=== PATIENT | male | born 1945 | race Caucasian/White ===

== ENCOUNTER 2023-03-01 15:02 | Emergency (ER) | payer MEDICARE, SELFPAY ==
[2023-03-01 15:05] VITALS: BP 127/77
[2023-03-01 15:25] LABS: % Basophils 1.1 % (0-2); % Eosinophils 5.4 % (0-6); % Lymphocytes 21.7 % (20.5-51.1); % Neutrophils 59.8 % (42.2-75.2); Absolute Basophils 0.1 10^3/uL (0-0.2); Absolute Eosinophils 0.3 10^3/uL (0-0.7); Absolute Immature Granulocytes 0.1 10^3/uL (0-0.05); Absolute Lymphocytes 1.4 10^3/uL (1.2-3.4); Absolute Monocytes 0.7 10^3/uL (0.1-0.6); Absolute Neutrophils 3.7 10^3/uL (1.4-6.5); Hematocrit 35.8 % (39.0-52.0); Hemoglobin 11.1 g/dL (13.0-18.0); Mean Corpuscular Hgb 25.7 pg (27.0-31.0); Mean Corpuscular Volume 82.9 fL (80.0-94.0); Mean Platelet Volume 9.5 fL (7.4-10.4); Nucleated Red Blood Cells % 0 % (-); Platelet Count 283 10^3/uL (130-400); Red Blood Cell Count 4.32 10^6/uL (4.70-6.10); Red Cell Dist. Width 21.7 % (11.5-14.5); White Blood Cell Count 6.3 10^3/uL (4.8-10.8)
[2023-03-01 15:35] LABS: INR 1.12; PT 14.6 Sec (11.4-14.6)
[2023-03-01 15:44] LABS: ALT (SGPT) 42 U/L (0-50); AST (SGOT) 38 U/L (17-59); Albumin 4.2 g/dl (3.5-5.0); Alkaline Phosphatase 64 U/L (38-126); Blood Urea Nitrogen 18 mg/dl (9-20); Calcium 9.7 mg/dl (8.4-10.2); Carbon Dioxide 25 mmol/L (22-30); Chloride 106 mmol/L (98-107); Glucose 108 mg/dl (70-99); Potassium 4.6 mmol/L (3.5-5.1); Sodium 135 mmol/L (135-145); Total Bilirubin 0.5 mg/dl (0.2-1.3); Total Protein 7.7 g/dl (6.3-8.2); eGFR > 60.00
[2023-03-01 17:04] VITALS: BP 133/71
--- NOTE | 2023-03-01 17:30 | ED.GENMED ---
History of Present Illness
General
Chief Complaint: Abnormal Lab Value
Source: patient, records, spouse and previous hospital records
Exam Limitations: none
Time Seen by Provider: 03/01/23 17:10
Nursing documentation reviewed up to this point in time: agreed with
Travel History
Have you had any contact with someone who has COVID-19?: No
Do you have any symptoms of coronavirus? Fever > 100 degrees, chills, cough, shortness of breath, sore throat, loss of taste or smell, muscle aches, or headache?: No
History of Present Illness
History of Present Illness:
77 male presents with fatigue dyspnea on exertion no chest pain, no leg edema no weight gain no weight loss this is a recurrent issue with him, saw his PCP at the [facility] few weeks ago had some blood work revealed hemoglobin of 5 suggested to come to the
ER he preferred to take iron instead as he has been through this before had upper or lower endoscopy also scheduled to have a stress test a few days, feeling okay until couple days ago, had increasing fatigue increased shortness of breath dyspnea
exertion
Drinks about a case of beer a week, does not smoke type II diabetic denies history of CAD or heart failure patient denies any dark or bloody stools, no hematuria
Past History
Past History
ED Past Medical History: CVA (TIA), NIDDM and Other (diverticulitis)
ED Past Surgical History: Other (Noncontributory )
Social History
Tobacco: Non-smoker
Alcohol: Daily
Drug: None
Personal:
Living: with family
Employment: Employed
Family History
Family History: Other (CVA at early ages )
Review of Systems
Review of Systems
All Other Systems: Not applicable
Constitutional: Reports fatigue; Denies fever
EENT: Reports no symptoms
Respiratory: Reports trouble breathing; Denies cough
Cardiac: Denies chest pain
ABD/GI: Reports no symptoms; Denies nausea, diarrhea, constipated, bloody stools, black stools or anorexia
: Reports no symptoms
Musculoskeletal: Reports no symptoms
Skin: Reports no symptoms
Neurological: Reports weakness
Phy Exam
Physical Exam
Physical Exam:
Physical Exam
General: no apparent distress, not acutely ill
Neck: No jaundice
Heart: s1/s2 regular rate and rhythm, no murmur. equal radial pulses.
Lungs: no acute respiratory distress. clear bilaterally
Abdomen: Soft nontender
Neuro: alert and oriented. no focal neurological deficits
Skin: no rash
Psychiatric: well kept. interactive and cooperative
Extremities: no edema. no calf tenderness.
Course
Orders/Labs/Results
Orders:
Orders
03/01/23 15:08
Electrocardiogram (*1) Urgent
Reason for Study: Fatigue / Weakness
EKG- Treatment ONCE
03/01/23 15:14
Type+Screen Urgent
CMP [Comprehensive Metabolic Panel] Urgent
Complete Blood Count/With Diff Urgent
PT/INR [Prothrombin Time] Urgent
03/01/23 17:19
CR Chest - 2 Views Urgent
Comment:
Reason For Exam: faigute
03/01/23 17:21
NT-proBNP Urgent
TSH Urgent
Troponin I Urgent
Abnormal Lab Results
03/01/23
15:14
RBC 4.32 L 10^6/uL
(4.70-6.10)
Hgb 11.1 L g/dL
(13.0-18.0)
Hct 35.8 L %
(39.0-52.0)
MCH 25.7 L pg
(27.0-31.0)
MCHC 31.0 L g/dL
(33.0-37.0)
RDW 21.7 H %
(11.5-14.5)
Abs Immat Gran (auto) 0.1 H 10^3/uL
(0-0.05)
Absolute Monos (auto) 0.7 H 10^3/uL
(0.1-0.6)
Immature Gran % 1.0 H %
(0-0.5)
Monocytes % 11.0 H %
(1.7-9.3)
Glucose 108 H mg/dl
(70-99)
03/01/23 15:14
03/01/23 15:14
Vital Signs
Initial and Last Documented VS:
Initial Vital Signs
Temp Pulse Resp BP Pulse Ox
97.7 F 79 17 127/77 99
03/01/23 15:05 03/01/23 15:05 03/01/23 15:05 03/01/23 15:05 03/01/23 15:05
Last Documented Vital Signs
Temp Pulse Resp BP Pulse Ox
97.7 F 77 18 133/71 99
03/01/23 15:05 03/01/23 17:04 03/01/23 17:04 03/01/23 17:04 03/01/23 17:04
MDM/Problems Addressed
Differential Diagnosis Includes:
Anemia heart failure electrolyte abnormality hypothyroid heart failure less likely ACS
MDM/Problems Addressed:
Fatigue shortness of breath anemia
Chronic conditions affecting care: DM and HTN
Acute Exacerbation and/or Progression of Chronic Illness: DM and HTN
*Radiology
Radiology exam reviewed: preliminary read by ED provider
*Pulse Oximetry
Patient hypoxic: no
*EKG
Interpreted by ED Provider?: Yes
Interpretation: abnormal
Comparison EKG: no comparison EKG present
Heart Rate: 78
Rate: normal
Rhythm: sinus
QRS Pattern: right bundle branch block
Ischemia: non-specific ST changes
*Manager Environmental Health And Safety Interpretation
Rate: normal
Interpretation: normal
Heart Rate: 78
Rhythm: sinus
*Critical Care Note
Total Time (30-74mins, 75-104mins- exclusive of procedures): Not Applicable
Data Reviewed
Review of Other/Old Records Reveals: Labs and Records
Source: patient and records
Update Note
Update Note:
5:37 PM labs are noted here prior levels noted denies any active bleeding supported by his blood work, most recent upper and lower endoscopy noted does have tics and polyps
Will add troponin proBNP and chest x-ray
6:11 PM show proBNP noted chest x-ray pending
ED Attending Note
-
Portions of this chart may have been created with voice recognition software.� Occasional wrong word or��sound alike� substitutions may have occurred due to the inherent limitations of voice recognition software.
Discharge Plan
Departure
Prescriptions:
No Action
No Current Medications
metformin 500 MG tablet
500 mg PO DAILY
pravastatin 40 MG tablet
40 mg PO DAILY
aspirin 81 MG tablet,delayed release (DR/EC)
81 mg PO DAILY
amoxicillin-pot clavulanate 875 MG/125 MG tablet
1 tab PO Q12 Qty: 14 0RF
metronidazole 500 MG tablet
500 mg PO TID Qty: 29 0RF
oxycodone-acetaminophen 5 MG/325 MG tablet
1 tab PO Q6HPRN PRN (Reason: pain) Qty: 12 0RF
levofloxacin 500 MG tablet
500 mg PO DAILY Qty: 9 0RF
Referrals:
Aletha Vallejo MD [Family Provider] -
Interventions
Interventions:
*Risk Screen - Suicide Last Done: 03/01/23 15:07
*General Assessment Last Done: 03/01/23 15:07
*Neglect/Abuse Screening Last Done: 03/01/23 15:07
ED- Fall Risk Assessment Last Done: 03/01/23 17:03
*ED COVID-19 Vaccine History Last Done: 03/01/23 15:07
[2023-03-01 17:56] LABS: NT-proBNP 433 pg/ml; Troponin I 0.028 ng/ml
[2023-03-01 18:15] LABS: TSH 4.12 uIU/ml (0.47-4.68)
[2023-03-01 18:58] VITALS: BP 126/72
== END 2023-03-01 19:01 | disposition home or self-care (01) ==
LOC: EMR 15:02
PROVIDERS: Emergency Medicine; EMERGENCY PHYSICIAN Emergency Medicine; FAMILY PHYSICIAN Internal Medicine
DX: R53.83 Other fatigue (principal); E11.9 Type 2 diabetes mellitus without complications; I10 Essential (primary) hypertension
CPT/HCPCS: 99285; 71046; 80053; 83880; 84443; 84484; 85025; 85610; 86850; 86900; 86901; 93005

== ENCOUNTER 2023-09-19 10:02 | Emergency (ER) | payer MEDICARE, SELFPAY ==
[2023-09-19 10:08] VITALS: BP 105/71
[2023-09-19 10:18] VITALS: BMI 32.6
[2023-09-19 10:32] VITALS: BP 111/70
[2023-09-19 10:38] LABS: % Basophils 0.6 % (0-2); % Eosinophils 3.5 % (0-6); % Immature Granulocytes 0.5 % (0-0.5); % Lymphocytes 15.6 % (20.5-51.1); % Monocytes 9.9 % (1.7-9.3); % Neutrophils 69.9 % (42.2-75.2); Absolute Basophils 0.1 10^3/uL (0-0.2); Absolute Eosinophils 0.3 10^3/uL (0-0.7); Absolute Lymphocytes 1.3 10^3/uL (1.2-3.4); Absolute Monocytes 0.8 10^3/uL (0.1-0.6); Absolute Neutrophils 5.9 10^3/uL (1.4-6.5); Hematocrit 40.3 % (39.0-52.0); Mean Corp Hgb Conc. 34.7 g/dL (33.0-37.0); Mean Corpuscular Hgb 32.9 pg (27.0-31.0); Mean Corpuscular Volume 94.6 fL (80.0-94.0); Mean Platelet Volume 9.7 fL (7.4-10.4); Nucleated Red Blood Cells % 0 % (-); Platelet Count 209 10^3/uL (130-400); Red Blood Cell Count 4.26 10^6/uL (4.70-6.10); Red Cell Dist. Width 12.8 % (11.5-14.5); White Blood Cell Count 8.5 10^3/uL (4.8-10.8)
[2023-09-19 10:49] LABS: Urine Albumin Trace (Neg - Trace); Urine Bilirubin Negative (Negative); Urine Character Clear (Clear); Urine Color Yellow; Urine Glucose 3+ (Negative); Urine Ketone Negative (Negative); Urine Leukocyte Negative (Negative); Urine Nitrite Negative (Negative); Urine Occult Blood Negative (Negative); Urine Specific Gravity 1.015 (<1.030); Urine Urobilinogen Negative (Neg - 1+)
[2023-09-19 10:54] LABS: ALT (SGPT) 31 U/L (0-50); AST (SGOT) 24 U/L (17-59); Albumin 4.2 g/dl (3.5-5.0); Alkaline Phosphatase 72 U/L (38-126); Blood Urea Nitrogen 29 mg/dl (9-20); Calcium 10.1 mg/dl (8.4-10.2); Carbon Dioxide 22 mmol/L (22-30); Chloride 105 mmol/L (98-107); Estimated Creatinine Clearance 56 ml/min; Glucose 203 mg/dl (70-99); Lipase 302 U/L (23-300); Potassium 4.7 mmol/L (3.5-5.1); Sodium 135 mmol/L (135-145); Total Bilirubin 0.7 mg/dl (0.2-1.3); Total Protein 7.2 g/dl (6.3-8.2); eGFR > 60.00
[2023-09-19 11:15] VITALS: BP 109/69
[2023-09-19] MEDS: AUGMENTIN 875 MG/125 MG 1 TABLET PO (11:19)
--- NOTE | 2023-09-19 11:28 | ED.GENMED ---
History of Present Illness
General
Chief Complaint: Abdominal Pain
Source: patient
Exam Limitations: none
Time Seen by Provider: 09/19/23 10:13
Nursing documentation reviewed up to this point in time: agreed with
History of Present Illness
History of Present Illness:
The patient is a pleasant 78-year-old man with a past medical history of mom-nguxuem-yivjscvqc diabetes who comes in complaining of gradual onset of mild left lower abdominal pain. Patient denies nausea, vomiting, diarrhea, constipation and fever.
He reports that he had diverticulitis years ago and this feels exactly like it. Patient reports that he is here to get antibiotics. He really does not want any other further workup such as a CAT scan. Patient denies injury. He denies urinary
symptoms.
Past History
Past History
ED Past Medical History: CVA (TIA), NIDDM and Other (diverticulitis)
ED Past Surgical History: Other (No past surgical history)
Social History
Tobacco: Non-smoker
Alcohol: Daily
Drug: None
Personal:
Living: with family
Employment: Employed
Family History
Family History: Other (CVA at early ages )
Review of Systems
Review of Systems
Allergies reviewed?: Yes
All Other Systems: ROS reviewed and negative except as documented in HPI and ROS
Constitutional: Reports no symptoms
EENT: Reports no symptoms
Respiratory: Reports no symptoms
Cardiac: Reports no symptoms
ABD/GI: Reports abdominal pain
: Reports no symptoms
Musculoskeletal: Reports no symptoms
Skin: Reports no symptoms
Neurological: Reports no symptoms
Endocrine: Reports no symptoms
Hematologic/Lymphatic: Reports no symptoms
Psychiatric: Reports no symptoms
Phy Exam
Physical Exam
Physical Exam:
Physical Exam
General: no apparent distress, not acutely ill, patient appears comfortable. Conversational and smiling
Neck: supple. no meningeal signs. normal psoterior pharynx
Heart: s1/s2 regular rate and rhythm,
Lungs: no acute respiratory distress. clear bilaterally
Abdomen: normal bowel sounds. Mild left lower quadrant tenderness without rebound or guarding. No flank tenderness. No pulsatile mass.
Neuro: alert and oriented. no focal neurological deficits
Skin: no rash
Psychiatric: well kept. interactive and cooperative
Extremities: no edema. no calf tenderness. negative homans. good distal pulses
Course
Orders/Labs/Results
Orders:
Orders
09/19/23 10:29
Complete Blood Count/With Diff Urgent
Comprehensive Metabolic Panel Urgent
Lipase Urgent
Urinalysis Reflex To Culture Urgent
Date Specimen was Collected: 09/19/23
Time Specimen was Collected: 10:22
09/19/23 11:11
Amoxicillin 875 mg/Clav 125 mg [Augmentin 875 mg/125 mg] 1 tablet PO NOW STA
Abnormal Lab Results
09/19/23
10:29
RBC 4.26 L 10^6/uL
(4.70-6.10)
MCV 94.6 H fL
(80.0-94.0)
MCH 32.9 H pg
(27.0-31.0)
Absolute Monos (auto) 0.8 H 10^3/uL
(0.1-0.6)
Lymphocytes % 15.6 L %
(20.5-51.1)
Monocytes % 9.9 H %
(1.7-9.3)
BUN 29 H mg/dl
(9-20)
Glucose 203 H mg/dl
(70-99)
Lipase 302 H U/L
(23-300)
Urine Glucose 3+ A
(Negative)
09/19/23 10:29
09/19/23 10:29
Vital Signs
Initial and Last Documented VS:
Initial Vital Signs
Temp Pulse Resp BP Pulse Ox
98.1 F 84 20 105/71 98
09/19/23 10:08 09/19/23 10:08 09/19/23 10:08 09/19/23 10:08 09/19/23 10:08
Last Documented Vital Signs
Temp Pulse Resp BP Pulse Ox
98.1 F 78 18 109/69 95
09/19/23 10:08 09/19/23 11:15 09/19/23 11:15 09/19/23 11:15 09/19/23 11:15
MDM/Problems Addressed
Differential Diagnosis Includes:
Acute diverticulitis, acute pyelonephritis, aortic dissection, aortic aneurysm, musculoskeletal pain
MDM/Problems Addressed:
Patient presents with acute left lower abdominal pain
Chronic conditions affecting care:
Given patient has a history of diverticulosis he could have acute diverticulitis
Acute Exacerbation and/or Progression of Chronic Illness:
Patient may have acute exacerbation of chronic diverticulosis
*Pulse Oximetry
Patient hypoxic: no
*EKG
Interpreted by ED Provider?: NA
*Seismic Observer Interpretation
Rate: Seismic Observer- N/A
*Critical Care Note
Total Time (30-74mins, 75-104mins- exclusive of procedures): Not Applicable
Data Reviewed
Review of Other/Old Records Reveals: Testing (Colonoscopy report reviewed from March 2019 which shows multiple areas of diverticulosis and various polyps)
Source: patient
Further Testing Considered But Not Given:
I told patient there is no way for us to definitely identify if he has acute diverticulitis or any complications without doing a CT. Patient reports that his symptoms are minimal, he feels well, and he really does not want a CAT scan. Patient
encouraged to return immediately with any increased pain, vomiting or fever. Patient seems extremely reliable and understands risks of not having a CAT scan. It is doubtful he is having an aortic issue given that he is strong pulses in his
bilateral lower extremities and has no weakness or numbness of his extremities.
ED Attending Note
-
Portions of this chart may have been created with voice recognition software.� Occasional wrong word or��sound alike� substitutions may have occurred due to the inherent limitations of voice recognition software.
Discharge Plan
Departure
Patient Disposition: Home (Routine Discharge)
Date of Disposition: 09/19/23
Time of Disposition: 11:08
Patient with high blood pressure during this ER visit?: No
Condition: Good
Covid-19: Not Applicable
Discharge Problem:
Abdominal pain, left lower quadrant, Acute dehydration, Hyperglycemia
Instructions: Diverticulitis (DC), High Blood Sugar, Adult ED, Abdominal Pain
Prescriptions:
New
amoxicillin-pot clavulanate 875-125 mg tablet
1 tab PO BID Qty: 19 0RF
No Action
No Current Medications
metformin 500 MG tablet
500 mg PO DAILY
pravastatin 40 MG tablet
40 mg PO DAILY
aspirin 81 MG tablet,delayed release (DR/EC)
81 mg PO DAILY
amoxicillin-pot clavulanate 875 MG/125 MG tablet
1 tab PO Q12 Qty: 14 0RF
metronidazole 500 MG tablet
500 mg PO TID Qty: 29 0RF
oxycodone-acetaminophen 5 MG/325 MG tablet
1 tab PO Q6HPRN PRN (Reason: pain) Qty: 12 0RF
levofloxacin 500 MG tablet
500 mg PO DAILY Qty: 9 0RF
Referrals:
Aletha Vallejo MD [Family Provider] -
Activity Restrictions/Additional Instructions:
It is extremely important that you return immediately with any worsening abdominal pain, vomiting, or fever. Please follow-up with your primary care doctor within 3 days. Your blood sugar was slightly elevated. Your blood work indicated mild
dehydration. Make sure you are drinking lots of fluids
Interventions
Interventions:
*Risk Screen - Suicide Last Done: 09/19/23 10:08
*General Assessment Last Done: 09/19/23 10:08
*Neglect/Abuse Screening Last Done: 09/19/23 10:08
*Nursing Disposition Last Done: 09/19/23 11:22
LR-Azblxu-Nzjnthmspa Assessment Last Done: 09/19/23 10:18
Discharge Date and Time
Discharge Date/Time: 09/19/23 11:23
Print Language: SOMALI
== END 2023-09-19 11:23 | disposition home or self-care (01) ==
LOC: EMR 10:02
PROVIDERS: EMERGENCY PHYSICIAN Emergency Medicine; FAMILY PHYSICIAN Internal Medicine
DX: R10.32 Left lower quadrant pain (principal); E11.65 Type 2 diabetes mellitus with hyperglycemia; E86.0 Dehydration; K57.90 Diverticulosis of intestine, part unspecified, without perforation or abscess without bleeding; Z86.73 Personal history of transient ischemic attack (TIA), and cerebral infarction without residual deficits; Z87.891 Personal history of nicotine dependence; Z79.82 Long term (current) use of aspirin; Z79.84 Long term (current) use of oral hypoglycemic drugs
CPT/HCPCS: 99283; 80053; 81003; 83690; 85025

== ENCOUNTER 2024-08-01 06:09 | Inpatient (IN) | payer MEDICARE, SELFPAY ==
[2024-07-27 09:50] VITALS: BMI 33.9
[2024-07-27 10:06] LABS: % Eosinophils 6.3 % (0-6); % Immature Granulocytes 0.7 % (0-0.5); % Lymphocytes 18.9 % (20.5-51.1); % Monocytes 9.2 % (1.7-9.3); % Neutrophils 63.9 % (42.2-75.2); Absolute Basophils 0.1 10^3/uL (0-0.2); Absolute Eosinophils 0.4 10^3/uL (0-0.7); Absolute Immature Granulocytes 0.1 10^3/uL (0-0.05); Absolute Lymphocytes 1.3 10^3/uL (1.2-3.4); Absolute Monocytes 0.6 10^3/uL (0.1-0.6); Absolute Neutrophils 4.3 10^3/uL (1.4-6.5); Hematocrit 35.3 % (39.0-52.0); Hemoglobin 11.9 g/dL (13.0-18.0); Mean Corp Hgb Conc. 33.7 g/dL (33.0-37.0); Mean Corpuscular Hgb 32.2 pg (27.0-31.0); Mean Corpuscular Volume 95.7 fL (80.0-94.0); Mean Platelet Volume 10.1 fL (7.4-10.4); Nucleated Red Blood Cells % 0 % (-); Platelet Count 216 10^3/uL (130-400); Red Blood Cell Count 3.69 10^6/uL (4.70-6.10); Red Cell Dist. Width 12.6 % (11.5-14.5); White Blood Cell Count 6.7 10^3/uL (4.8-10.8)
[2024-07-27 10:15] LABS: INR 0.99; PT 13.6 Sec (11.4-14.6)
[2024-07-27 10:16] LABS: APTT 27.5 Sec (23.4-35.0)
[2024-07-27 10:33] LABS: Blood Urea Nitrogen 18 mg/dl (9-20); Calcium 9.7 mg/dl (8.4-10.2); Carbon Dioxide 23 mmol/L (22-30); Chloride 109 mmol/L (98-107); Estimated Creatinine Clearance 55 ml/min; Glucose 181 mg/dl (70-99); Sodium 140 mmol/L (135-145); eGFR > 60.00
[2024-08-01] VITALS (8 sets, daily range): BP systolic 107–174; BP diastolic 46–90; BMI 34.5
[2024-08-01 06:55] LABS: Glucose - Point of Care 201 mg/dl (70-99)
[2024-08-01] MEDS: PERIDEX 0.12% ORAL RINSE 15 ML PO (06:58)
[2024-08-01] MEDS: NSS 500 IV (06:58)
[2024-08-01] MEDS: BACTROBAN NASAL 1 GRAM NASAL (06:58)
--- NOTE | 2024-08-01 07:08 | HP.FOC2 ---
Focused History & Physical
Chief Complaint
HPI:
Chief Complaint: Left carotid stenosis
HPI / Indication for Planned Procedure: This is a 79 year old male with significant past medical history for aortic valve stenosis, PPM, angiodysplasia of stenosis, anemia, osteoarthritis, HLD, ED, diabetes, diverticulosis, obesity, TIA, and carotid
stenosis who presents to [facility] for scheduled left carotid endarterectomy with Dr. Earl Lazcano. Patient denies recent illness, trauma, or hospitalization. Denies nausea, vomiting, fever, chills, cough, chest pain, or headache. Endorses he
feels at his baseline health.
Relevant Past Medical History: Other (aortic valve stenosis, angiodysplasia of stenosis, anemia, osteoarthritis, HLD, ED, diabetes, diverticulosis, obesity, TIA, and carotid stenosis)
Relevant Social History: Tobacco Use (former quit in 2006)
Relevant Family History: Negative
Relevant Past Surgical History: Positive for (tonsillectomy, rotator cuff repair, PPM)
Review of Systems
Review of Pertinent Systems: All Systems Negative
Medication
See Medication form for detailed medications: Yes
Medication List (including Herbals & OTC):
aspirin 81 mg tablet,delayed release 81 mg PO DAILY 07/05/11
metformin 500 mg tablet 1,000 mg PO BID 07/05/11
atorvastatin 80 mg tablet 80 mg PO HS 07/25/24
docusate sodium 100 mg tablet 100 mg PO DAILY 07/25/24
ferrous sulfate 325 mg (65 mg iron) tablet (iron) 325 mg PO DAILY 07/25/24
loratadine 10 mg tablet 10 mg PO DAILY 07/25/24
metoprolol succinate 25 mg tablet,extended release 24 hr 12.5 mg PO DAILY 07/25/24
sitagliptin 50 mg tablet 50 mg PO DAILY 07/25/24
vitamin [id number] acid 1 dose PO DAILY 07/25/24
Medications Reviewed: Yes
Allergies and Reactions
Patient has Allergies: No
Noted Allergies and Reactions:
Allergy/AdvReac Type Severity Reaction Status Date / Time
No Known Drug Allergies Allergy Unknown Verified 07/25/24 14:35
Pertinent Physical Exam
All Other Systems: Negative
Head/Neck: Normal
Lungs: Normal (BL lungs CTA)
Heart: Other
Abdomen: Normal (NTND)
Extremities: Normal (BL radial pulse +2)
Neurological: Normal
Diagnosis / Assessment
Assessment: 79 year old male with LEFT carotid stenosis
Plan / Procedure
Plan: Proceed with scheduled left carotid endarterectomy with Dr. Earl Lazcano.
Anesthesia/Sedation to be done by Anesthesia Provider: Yes
--- NOTE | 2024-08-01 07:16 | W.SUR.PREOP ---
Pre-Operative Surgical Note
-
I have examined this patient prior to the performance of the scheduled procedure.
The patient's condition is unchanged from the time of the current History and
Physical and the patient is able to undergo the scheduled procedure.
--- NOTE | 2024-08-01 08:48 | W.SUR.POST ---
Surgical Immediate Post Op
Note
Pre Op Diagnosis: Carotid stenosis
Post Op Diagnosis: Same
Procedure Performed: Left carotid endarterectomy with bovine pericardial patch angioplasty and EEG monitoring
Primary Surgeon: Neno
Assist: Escobar DURANT
Anesthesia: General
Estimated Blood Loss: 40cc
Fluids: See anesthesia flowsheet
Drains/Shunts: None
Specimens/Cultures: Left carotid plaque
Doppler/Duplex/Angio (Y/N): Y
Complications: None
Operative Findings: Woke from anesthesia moving all extremities
[2024-08-01 09:04] LABS: ACT-LR - POC 218 Seconds (116-155)
[2024-08-01 09:09] LABS: ACT-LR - POC 263 Seconds (116-155)
--- NOTE | 2024-08-01 09:41 | OR.RPT ---
Operative Report
Operative Report
PROCEDURE DATE: 08/01/2024
Preoperative diagnosis: Critical asymptomatic left carotid artery stenosis.
Postoperative diagnosis: Same
Procedure: Left carotid endarterectomy with bovine pericardial patch angioplasty and intraoperative EEG/SSEP monitoring.
Surgeon: Neno
[employer] Operators Supervisor: GABY Cody, required for all aspects of procedure including assistance with traction/countertraction, following suture line, assistance with closure.
Complications: None
Anesthesia: General
Indications for procedure:
Severe long segment left carotid stenosis. Right at least moderate, possibly high-grade stenosis as well. No current symptoms but patient with atheroembolic symptoms to the left hemisphere or eye several years ago. Risk/benefits/alternatives of
revascularization were discussed. Patient understood all wished to proceed.
Description of procedure:
Patient was identified brought to the operating room placed on the table in supine position. After the adequate administration of anesthesia and perioperative antibiotics he was prepped and draped in the standard surgical fashion. A standard
preoperative timeout was undertaken and everybody was in agreement the plan. A standard longitudinal incision was made in the left neck that was carried through the skin subcutaneous tissue. Note based on his habitus his neck was somewhat shorter
and deeper. Therefore we prepared for more challenging dissection. Using the electrocautery dissection was carried through the platysma muscle layer and then alongside the anterior medial border of the sternocleidomastoid muscle. Then using a
combination of sharp dissection with the Metzenbaum scissors and electrocautery I dissected along the anterior medial border of the internal jugular vein. The common facial vein branch was ligated between silk ties and then divided. There were
actually 2 adjacent branches, and both of these were ligated between silk ties and then divided. I then deepened my retraction. The common carotid artery was identified and carefully dissected away from the surrounding structures take great care
to avoid any injury to the structures. A vessel loop was passed around it which was double looped, but not yet tightened. Note the vagus nerve was clearly visualized and was protected from harm's way. I then continued my dissection up the common
carotid artery to the bulb staying only on the anterior surface of the carotid artery. Then I carried the dissection up to the internal carotid artery and then to the distal internal carotid artery. I identified where it was soft and carefully
circumferentially dissected the internal carotid artery with minimal mobilization and passed a vessel loop around it. This was at least 2 to 3 cm distal to the bifurcation. I had known that it was a long lesion based on CT scan imaging. Note the
hypoglossal nerve was clearly visualized and was preserved from harm's way. The patient was given an appropriate dose of heparin 9500 units. Next I dissected the anterior surface of the external carotid artery and superior thyroid branches. These
were then carefully circumferentially dissected with minimal mobilization and vessel loops passed around these which were double looped but not yet tightened. After 3 minutes of heparin circulation time and confirmation of optimization of the
blood pressure with my anesthesiology colleagues, I clamped the distal internal carotid artery where it was soft. Note initially when I clamped, though the artery felt soft to palpation against a right angle clamp, it did not seem to clamp down the
entirety of it suggesting there was still posterior plaque. Therefore I had to dissect further cephalad, well underneath the hypoglossal nerve, and then was able to shift my clamp further cephalad. However again care was taken the entire time to
visualize and protect the hypoglossal nerve. There was no immediate EEG or SSEP changes. After 1 minute of test clamp time there was no changes noted. Therefore at this point, the vessel loops on the external carotid artery and superior thyroid
branches were tightened and the common carotid artery was clamped where it was soft proximally. An arteriotomy was made on the common carotid artery with an 11 blade and extended using a Ferro scissor. I extended the arteriotomy onto the mid to
distal internal carotid artery. There was heavy atherosclerotic calcified plaque extending for a long segment of the internal carotid artery. Though it appeared I got to the endpoint on the internal carotid artery, I noted that posteriorly the
plaque still continued on the posterior wall. I was very high output already. However, I now used a [place] to endarterectomized the plaque. An endarterectomy plane was created, and the plaque was then endarterectomized. Distally I feathered the
plaque out to a nice clean endpoint in the distal internal carotid artery on the medial/lateral surface of the wall, but posteriorly I just cut the plaque with a Ferro scissor. Next I endarterectomized the intima back to normal intima in the common
carotid artery, and the intima was cut flush there. I then grasped the plaque and everted plaque out of the origin of the external carotid artery. The plaque was then sent off for specimen. The origin of the external carotid artery was carefully
visualized and any fine debris were removed with fine forceps. Now I turned my attention again to the distal endpoint posterior plaque. I had to actually shift my clamp up further cephalad at this point. Careful dissection was undertaken, and
again hypoglossal was well-visualized. I was essentially almost at the level of the digastric muscle, but did not need to divide it. Artery softened and I moved my clamp here. I now grasped the posterior plaque and used a [place] to
endarterectomized and then I was able to pluck it out and it feathered to a nice clean endpoint here. At this point I was very satisfied. Proximal and distal endpoints were then carefully inspected. Any fine debris was removed with fine forceps,
and the intima was noted to be nicely adherent proximally distally. Next any fine debris were removed throughout the endarterectomy bed with fine forceps. I then flushed heparinized saline. I was very satisfied. Then, I used a bovine pericardial
patch to sew a fairly long patch angioplasty with a running 6-0 Prolene suture. Prior to completing and tying down my suture line, I backbled sequentially each branch and reclamped each branch prior to unclamping the next branch. I then irrigated
with heparinized saline. Then I completed and tied down my suture line. We then restored flow in the common carotid and external carotid arteries. Finally, we released flow in the internal carotid artery. There was excellent pulsatile flow in
all 3 vessels. There was an excellent Doppler signal in the internal carotid artery distal to the patch with a good normal low resistance Doppler signal. There was a good Doppler signal in the external carotid artery as well. A couple 6-0 Prolene
didiry-en-scptm sutures were placed along any bleeding points along the suture line. Protamine was given to reverse the heparin. Hemostasis was completely achieved. We then irrigated and confirmed full hemostasis. We then closed in layers with
2-0 Vicryl layer to reapproximate the sternocleidomastoid muscle, followed by 3-0 Vicryl platysma muscle running layer, followed by 4-0 Monocryl subcuticular stitch. Dermabond was applied. The patient tolerated procedure well. He awoke moving all
extremities to command with tongue in the midline.
[2024-08-01 10:08] LABS: Glucose - Point of Care 259 mg/dl (70-99)
[2024-08-01 10:09] LABS: Hematocrit 30.8 % (39.0-52.0); Hemoglobin 10.4 g/dL (13.0-18.0); Mean Corp Hgb Conc. 33.8 g/dL (33.0-37.0); Mean Corpuscular Hgb 32.1 pg (27.0-31.0); Mean Corpuscular Volume 95.1 fL (80.0-94.0); Mean Platelet Volume 10.1 fL (7.4-10.4); Platelet Count 175 10^3/uL (130-400); Red Blood Cell Count 3.24 10^6/uL (4.70-6.10); Red Cell Dist. Width 12.6 % (11.5-14.5); White Blood Cell Count 8.1 10^3/uL (4.8-10.8)
[2024-08-01] MEDS: NOVOLOG vial 4 UNITS SC (10:17)
[2024-08-01 10:24] LABS: INR 1.12; PT 14.7 Sec (11.4-14.6)
[2024-08-01 10:25] LABS: APTT 27.8 Sec (23.4-35.0)
[2024-08-01 10:26] LABS: Blood Urea Nitrogen 25 mg/dl (9-20); Calcium 8.5 mg/dl (8.4-10.2); Carbon Dioxide 19 mmol/L (22-30); Chloride 110 mmol/L (98-107); Estimated Creatinine Clearance 55 ml/min; Glucose 271 mg/dl (70-99); Potassium 5.6 mmol/L (3.5-5.1); Sodium 136 mmol/L (135-145); eGFR > 60.00
[2024-08-01] MEDS: NSS 1000 IV ×2 (10:49→22:07)
--- NOTE | 2024-08-01 10:50 | CON.INTV ---
Consultation
Consultation Request
Date/Time Consultation Requested: 08/01/2024840
Date/Time Consultation Performed: 08/01/2024 - 909
Requesting Provider: CARLEEN Moraes
Performing Provider: Dr. Salas
Reason for Consultation: s/p L-CEA
Medical History
-
Chief Complaint: Elective left CEA
History of Present Illness:
79-year-old male former tobacco smoker with a past medical history of TIA, DM type II, anemia and bilateral carotid artery stenosis who presents for left carotid endarterectomy. Patient known to vascular surgery with last visit on 06/28/[address] Lazcano. Patient has had a prior CT angiogram from 04/26/2024 which showed nearly occluded left internal carotid artery with high-grade stenosis on the right internal carotid artery. Much of his care has been performed at the [facility]. In
2006 he had an episode of left eye amaurosis and was diagnosed with a TIA. That is actually when he stopped smoking. Given this history, he was recommended for surgical revascularization which the patient agreed to. Today he underwent left
carotid endarterectomy with bovine pericardial patch angioplasty and intraoperative EEG/SSEP monitoring. Patient tolerated the procedure well with no complications and was transferred to the ICU postoperatively. Net Mender services consulted for
additional management/recommendations.
When I saw the patient he was resting in bed in no acute distress. He complains of a left-sided headache behind his eye. No visual changes, shortness of breath, chest pain or abdominal pain. Currently, heart rate 69, BP via A-line 132/56, BP via
NIBP: 117/61 and saturating 91% on room air.
PMHx: TIA (2006), DM type II, anemia, bilateral carotid artery stenosis
PSHx: Tonsillectomy, left rotator cuff surgery due to tear, pacemaker implantation (05/03/2024)
Past Medical History
Past Medical History: Other (Above as per HPI)
Past Surgical History: Other (Above as per HPI)
Social History
Tobacco: Former Smoker (Quit 2006; previously smoked 0.25-0.5 PPD x 25 years)
Alcohol: None
Drug: None
Employment: Retired
Family History
Family History: Cancer (Father: Pancreatic cancer; Sister: uterine cancer), Hypertension (Mother) and Other (Father: Stroke)
Allergies / Home Medications
Allergies
Allergy/AdvReac Type Severity Reaction Status Date / Time
No Known Drug Allergies Allergy Unknown Verified 07/25/24 14:35
Home Medications
�Medication �Instructions �Recorded �Confirmed �Last Taken �Type
aspirin 81 mg tablet,delayed 81 mg PO DAILY Blood Clot 07/05/11 08/01/24 07/31/24 21:30 History
release Prevention/Tx
metformin 500 mg tablet 1,000 mg PO BID Diabetes 07/05/11 08/01/24 07/31/24 21:30 History
atorvastatin 80 mg tablet 80 mg PO HS High Cholesterol 07/25/24 08/01/24 07/31/24 21:30 History
docusate sodium 100 mg tablet 100 mg PO DAILY Constipation 07/25/24 08/01/24 07/31/24 21:30 History
ferrous sulfate 325 mg (65 mg 325 mg PO DAILY Supplement 07/25/24 08/01/24 07/31/24 08:00 History
iron) tablet (iron)
loratadine 10 mg tablet 10 mg PO DAILY Allergies 07/25/24 08/01/24 07/31/24 08:00 History
metoprolol succinate 25 mg 12.5 mg PO DAILY Heart 07/25/24 08/01/24 07/31/24 08:30 History
tablet,extended release 24 hr Disease/Condition
sitagliptin 50 mg tablet 50 mg PO DAILY Diabetes 07/25/24 08/01/24 07/31/24 08:00 History
vitamin R77-hubzf acid 1 dose PO DAILY Supplement 07/25/24 08/01/24 07/31/24 08:30 History
Review of Systems
-
History Source: Patient
All other systems: Negative unless noted (12 point ROS performed and is negative unless mentioned above.)
Vitals / Labs / Diagnostic Testing
Vital Signs
Temp Pulse Resp BP Pulse Ox
97.9 F 60 12 107/59 97
08/01/24 16:15 08/01/24 18:00 08/01/24 18:00 08/01/24 16:00 08/01/24 18:00
Lab Data
08/01/24 10:03
08/01/24 10:03
Laboratory Results
08/01/24
10:03
PT 14.7 H
INR 1.12
APTT 27.8
Diagnostic Testing:
Physical Exam
-
HEENT: Normocephalic and Anicteric
Cardiovascular: S1/S2 and Murmur (Luna across upper precordium)
Respiratory: Wheeze (negative), Rales (negative), Rhonchi (negative) and Non-Labored Respirations
GI: Soft, Non Distended, Non Tender and Normal Bowel Sounds
Neurology: Tremors (negative) and Other (Drowsy although easily arousable and answering questions appropriately)
Skin: Warm and Dry
General: Respiratory Distress (negative), Pain (Mild headache), Chills (negative) and Sweats (negative)
Assessment
-
Assessment: 79-year-old male former tobacco smoker with a past medical history of TIA, DM type II, anemia and bilateral carotid artery stenosis who presents for left carotid endarterectomy. Patient known to vascular surgery with last visit on
06/28/[address] Lazcano. Patient has had a prior CT angiogram from 04/26/2024 which showed nearly occluded left internal carotid artery with high-grade stenosis on the right internal carotid artery. Much of his care has been performed at the
[facility]. In 2006 he had an episode of left eye amaurosis and was diagnosed with a TIA. That is actually when he stopped smoking. Given this history, he was recommended for surgical revascularization which the patient agreed to. On
08/01/2024, he underwent left carotid endarterectomy with bovine pericardial patch angioplasty and intraoperative EEG/SSEP monitoring. Patient tolerated the procedure well with no complications and was transferred to the ICU postoperatively.
Net Mender services consulted for additional management/recommendations.
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
Impression:
#Critical asymptomatic L-carotid artery stenosis with history of TIA and former tobacco use s/p left carotid endarterectomy with bovine pericardial patch angioplasty & intraoperative EEG/SSEP (POD#0)
#Acute on chronic anemia due to above
#Hyperkalemia (mild)
#Metabolic acidosis with preserved anion gap
#DM type II complicated by hyperglycemia
#History of TIA with left eye amaurosis (2006)
Plan:
Postoperative surgical intensive care unit monitoring
Supplemental oxygen as needed to maintain SpO2 >90-94%
prn nebulized bronchodilators
Incentive spirometry encouraged 10x per hour for at least 4 hrs a day
Aspiration precautions
Pain control
Neuro and vascular checks per protocol
Maintain MAP>65
Replete electrolytes with K>4, Mg>2
Maintain euglycemia with goal BG 140-180
Vascular surgery following-correspondence and operative notes reviewed
Transfuse blood products as needed to keep Hb>7g/dL, and plt>50k (given post-operative status)
DVT prophylaxis
Early nutrition
Early mobilization
Critical care statement: A total of 38 minutes of critical care time was provided for this patient today. This includes management of unstable vital signs, evaluation of the patient at bedside, reviewing the patient's pertinent medical records
including radiographs, microbiology, laboratory evaluations, and discussion with primary team, consultants, pharmacy, nutrition, physical therapy, case management, charge nurse, critical care nursing, and respiratory therapy.
[2024-08-01] MEDS: TYLENOL 650 MG PO ×2 (11:43→22:06)
--- NOTE | 2024-08-01 11:52 | PTCARENOTE ---
Rec'd patient from PACU at 1038. Patient alert and oriented. Pupils equal and reactive; +3mm. Smile symmetrical. Tongue midline. MAEx4. C/o headache since post op. Tylenol administered. Left neck incision intact. Soft, no bruising. NSR on tele.
+Murmur. No edema. Palpable pulses. Weaned to RA. Pulse ox 93-95%. Fine crackles auscultated in right base. +BS. Tolerating clears. Voiding via urinal. IVFs initiated. VSS. Left radial lili leveled and zeroed. Plan of care and bedrest orders
discussed. Call velazquez within reach.
[2024-08-01] MEDS: THIAMINE INJECTION 200 MG IV ×2 (12:10→19:32)
[2024-08-01 12:25] LABS: Glucose - Point of Care 279 mg/dl (70-99)
[2024-08-01] MEDS: NOVOLOG FLEXPEN-LOW RESISTANCE 3 UNITS SC (12:30)
--- NOTE | 2024-08-01 16:15 | PTCARENOTE ---
No major changes from prior assessment. Q1hr neuro assessments maintained; unchanged. Patient resting comfortably. VSS. Tolerating clears throughout day. Diet advanced per order. Assisted in ordering dinner.
--- NOTE | 2024-08-01 16:20 | CM ---
Patient seen at bedside in ICU. Patient stated that he does not wear home O2 and that he lives with his in a split level home. No DME previously. [facility] or [facility] [address] if needed. [facility]. Patient plan is for discharge home with no needs. CM will continue to follow for discharge planning needs.
Plan; home with no needs; watch for home O2 needs.
[2024-08-01] MEDS: NOVOLOG FLEXPEN-MODERATE RESISTANCE 5 UNITS SC (17:19)
[2024-08-01] MEDS: GLUCOPHAGE 1000 MG PO (17:19)
[2024-08-01 17:27] LABS: Glucose - Point of Care 289 mg/dl (70-99)
[2024-08-01] MEDS: ANESTHETIC LOZENGE 1 LOZENGE PO ×2 (19:32→23:55)
[2024-08-01] MEDS: ROXICODONE 5 MG PO (19:32)
--- NOTE | 2024-08-01 19:57 | PTCARENOTE ---
Received pt from previous RN. Pt is AAOx3, neuro checks Q1 (see worklist). MSAS per protocol. NSR w/1st degree, AV paced. Pt on 2L NC O2 sat 96%, lungs diminished. Pt uses the urinal. Pt c/o 5/10 sore throat, lozenge and PRN [place] given (see MAR).
Family at bedside. Plan of care discussed. Call velazquez in reach. Safe environment maintained.
[2024-08-01 21:54] LABS: Glucose - Point of Care 247 mg/dl (70-99)
[2024-08-01 21:59] LABS: Blood Urea Nitrogen 27 mg/dl (9-20); Calcium 8.5 mg/dl (8.4-10.2); Carbon Dioxide 20 mmol/L (22-30); Chloride 111 mmol/L (98-107); Estimated Creatinine Clearance 60 ml/min; Glucose 239 mg/dl (70-99); Magnesium 1.6 mg/dl (1.6-2.3); Potassium 4.7 mmol/L (3.5-5.1); Sodium 138 mmol/L (135-145); eGFR > 60.00
[2024-08-01] MEDS: LIPITOR 80 MG PO (22:06)
[2024-08-01] MEDS: NOVOLOG FLEXPEN 4 UNITS SC (22:20)
[2024-08-02] VITALS: BP 111/64
--- NOTE | 2024-08-02 00:07 | PTCARENOTE ---
Systems reviewed, no new changes in assessment. Neuro checks per protocol (see worklist). Pain relived with Tylenol. Audelia zeroed and transduced. Call velazquez in reach. Safe environment maintained.
[2024-08-02] MEDS: MAGNESIUM SULFATE 100 IV (00:56)
[2024-08-02] MEDS: TYLENOL 650 MG PO ×2 (03:15→08:01)
[2024-08-02 03:23] VITALS: BMI 34.9
--- NOTE | 2024-08-02 03:30 | PTCARENOTE ---
Systems reviewed, no new changes in assessment. AM labs provided. Tylenol given for YANES, left neck pain and sore throat (see MAR). Safe environment maintained. Call velazquez in reach.
[2024-08-02 03:35] LABS: Hematocrit 27.9 % (39.0-52.0); Hemoglobin 9.3 g/dL (13.0-18.0); Mean Corp Hgb Conc. 33.3 g/dL (33.0-37.0); Mean Corpuscular Hgb 31.8 pg (27.0-31.0); Mean Corpuscular Volume 95.5 fL (80.0-94.0); Mean Platelet Volume 10.6 fL (7.4-10.4); Platelet Count 163 10^3/uL (130-400); Red Blood Cell Count 2.92 10^6/uL (4.70-6.10); Red Cell Dist. Width 12.5 % (11.5-14.5); White Blood Cell Count 9.5 10^3/uL (4.8-10.8)
[2024-08-02 03:48] LABS: INR 1.08; PT 14.3 Sec (11.4-14.6)
[2024-08-02 03:49] LABS: APTT 25.5 Sec (23.4-35.0)
[2024-08-02 04:00] VITALS: BP 122/67
[2024-08-02 04:04] LABS: Blood Urea Nitrogen 26 mg/dl (9-20); Calcium 8.4 mg/dl (8.4-10.2); Carbon Dioxide 18 mmol/L (22-30); Chloride 113 mmol/L (98-107); Estimated Creatinine Clearance 67 ml/min; Glucose 185 mg/dl (70-99); Phosphorus 3.4 mg/dl (2.5-4.5); Sodium 137 mmol/L (135-145); eGFR > 60.00
--- NOTE | 2024-08-02 07:05 | PTCARENOTE ---
Received pt awake and alert. Handoff neuro assessment unremarkable. He c/o sore throat on the left side. He was encouraged to keep the ice pack on his neck to minimize internal swelling, he verbalized his understanding. IVF as ordered. He was
informed of the plan of care regarding removal of his arterial line, ambulating and discharge timeframe. He verbalized his understanding. Left neck incision JASMINA with surgical glue present. +BSx4. He stated when he got OOB he would use the bathroom
for BM. Safe environment maintained. Will continue to monitor.
[2024-08-02] MEDS: COLACE 100 MG PO (07:59)
[2024-08-02] MEDS: GLUCOPHAGE 1000 MG PO (07:59)
[2024-08-02 08:00] VITALS: BP 135/69
[2024-08-02] MEDS: FOLVITE 1 MG PO (08:00)
[2024-08-02] MEDS: FEOSOL 325 MG PO (08:00)
[2024-08-02] MEDS: TOPROL XL 12.5 MG PO (08:00)
[2024-08-02] MEDS: ASPIR LOW (ENTERIC COATED) 81 MG PO (08:01)
[2024-08-02] MEDS: JANUVIA 50 MG PO (08:01)
[2024-08-02] MEDS: CLARITIN 10 MG PO (08:01)
[2024-08-02] MEDS: THIAMINE INJECTION 200 MG IV (08:02)
--- NOTE | 2024-08-02 08:13 | W.PN.VS ---
Today's Communication / Plan
-
Discussed with Dr. Morales
Assessment/Plan
-
POD 1 left CEA
Plan:
DC A-line
DC IV fluids
Out of bed/ambulate
P.o. meds
Regular diet
Likely DC later today
Subjective Data
-
Date of Service: August 02, 2024
Patient seen at bedside this a.m. Patient physical at this time. No events overnight. Neurologically intact.
Objective Data
-
Vital Signs
Temp Pulse Resp BP Pulse Ox
97.7 F 60 15 135/89 98
08/02/24 07:25 08/02/24 08:00 08/02/24 06:45 08/02/24 08:00 08/02/24 06:45
Intake and Output
08/01/24 08/02/24 08/03/24
06:59 06:59 06:59
Intake Total 2620 / 2700 80 / 80
Output Total 1625 / 1625
Balance 995 / 1075 80 / 80
Intake:
Oral fluids 870 / 870
IV fluids (Total) 1650 / 1730 80 / 80
Nss 1,000 ml @ 80 mls/hr IV . 1600 / 1680 80 / 80
[id number] [facility] Rx#:[id number]
normal saline 50 / 50
IV piggybacks 100 / 100
Output:
Urine, Voided 1625 / 1625
Lab Results
08/02/24 03:22
08/02/24 03:22
Calcium 8.4 mg/dl (8.4-10.2) 08/02/24 03:22
Phosphorus 3.4 mg/dl (2.5-4.5) 08/02/24 03:22
Magnesium 2.0 mg/dl (1.6-2.3) 08/02/24 03:22
Physical Exam
-
AAO x 3
No tachypnea on room air
No tachycardia
Neck site clean, dry, soft, flat, well-approximated
Follows all commands, tongue midline
--- NOTE | 2024-08-02 08:17 | W.PN.INTV ---
Addendum entered and electronically signed by Brad Salas MD 08/02/24 13:53:
Correction to physical exam: Originally stated that the patient had bruising at his right upper extremity where brachial cutdown was performed - -> this is a typo; there is no bruising of his right upper extremity and brachial cutdown was not
performed on this patient.
Addendum entered and electronically signed by Brad Salas MD 08/02/24 13:49:
CDI inquiry response:
Anemia due to hemodilution only
Original Note:
Today's Communication / Plan
Recommendations
Up OOB as tolerated
Pain control
Outpatient follow-up with vascular surgery
Encourage incentive spirometer
Patient is being prepared for discharge home. No additional recommendations at this time. Plant Operations Manager/Pulmonary service will now sign off. Please reconsult if there are any additional questions/concerns, or if patient's respiratory status
deteriorates.
Assessment
-
Assessment: 79-year-old male former tobacco smoker with a past medical history of TIA, DM type II, anemia and bilateral carotid artery stenosis who presents for left carotid endarterectomy. Patient known to vascular surgery with last visit on
06/28/[address] Lazcano. Patient has had a prior CT angiogram from 04/26/2024 which showed nearly occluded left internal carotid artery with high-grade stenosis on the right internal carotid artery. Much of his care has been performed at the
[facility]. In 2006 he had an episode of left eye amaurosis and was diagnosed with a TIA. That is actually when he stopped smoking. Given this history, he was recommended for surgical revascularization which the patient agreed to. On
08/01/2024, he underwent left carotid endarterectomy with bovine pericardial patch angioplasty and intraoperative EEG/SSEP monitoring. Patient tolerated the procedure well with no complications and was transferred to the ICU postoperatively.
Plant Operations Manager services consulted for additional management/recommendations.
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
Impression:
#Critical asymptomatic L-carotid artery stenosis with history of TIA and former tobacco use s/p left carotid endarterectomy with bovine pericardial patch angioplasty & intraoperative EEG/SSEP (POD#1)
#Acute on chronic anemia due to above
#Hyperkalemia - resolved
#Metabolic acidosis with preserved anion gap
#DM type II complicated by hyperglycemia
#History of TIA with left eye amaurosis (2006)
Plan:
Postoperative surgical intensive care unit monitoring
Supplemental oxygen as needed to maintain SpO2 >90-94% - on room air breathing comfortably
prn nebulized bronchodilators - not currently bronchospastic
Incentive spirometry encouraged 10x per hour for at least 4 hrs a day
Aspiration precautions
Pain control
Neuro and vascular checks per protocol
Maintain MAP>65
Replete electrolytes with K>4, Mg>2
Maintain euglycemia with goal BG 140-180
Vascular surgery following-correspondence and operative notes reviewed
Transfuse blood products as needed to keep Hb>7g/dL, and plt>50k (given post-operative status)
DVT prophylaxis
Early nutrition
Early mobilization
Patient is being prepared for discharge home. No additional recommendations at this time. Plant Operations Manager/Pulmonary service will now sign off. Thank you for allowing us to be involved in the care of this patient. Please reconsult if there are any
additional questions/concerns, or if patient's respiratory status deteriorates.
Total time spent today was 43 minutes for this encounter. Time includes reviewing laboratory test/imaging results, reviewing pertinent medical records, obtaining and reviewing medical history, performing an appropriate exam, ordering medications,
tests and procedures. Time also includes documentation of this encounter, coordinating patient care and communicating with other healthcare professionals. Total time does not include separately billed tests performed on this date of service.
Subjective Dataa
Subjective Data
Date of Service:
Date of Service: August 02, 2024
Chief Complaint: Plant Operations Manager Follow Up
Subjective:
Patient seen and evaluated this morning. Currently, heart rate 87, BP 110/61 and on room air breathing comfortably. Still has a headache this morning but it had resolved with Tylenol. Afebrile overnight. Patient is being prepared for discharge
home later this morning.
Review of Systems
General: Other (Negative unless mentioned above)
Objective Data
Data Reviewed
Vital Signs / I&O / Oxygen:
Vital Signs
Temp Pulse Resp BP Pulse Ox
97.7 F 60 15 135/89 98
08/02/24 07:25 08/02/24 08:00 08/02/24 06:45 08/02/24 08:00 08/02/24 06:45
Intake and Output
08/01/24 08/02/24 08/03/24
06:59 06:59 06:59
Intake Total 2620 / 2700 80 / 80
Output Total 1625 / 1625
Balance 995 / 1075 80 / 80
SaO2 98
Nasal Cannula flow liters per 1
minute
Physical Exam
General: Respiratory Distress (negative), Comfortable, Chills (negative) and Sweats (negative)
HEENT: Normocephalic, Anicteric and Moist Mucous Membranes
Cardiovascular: S1-S2 and Peripheral Edema (negative)
Respiratory: Clear, Wheeze (negative), Crackles (negative), Rhonchi (negative) and Non-Labored Respirations
GI: Soft, Non Distended, Non Tender and Normal Bowel Sounds
Neurology: AO x 3 and Tremors (negative)
Skin: Warm, Dry, Cyanosis (negative), Jaundice (negative) and Bruising (Right upper extremity where brachial cutdown was performed)
Labs/Micro/Reports
Lab Data
08/02/24 03:22
08/02/24 03:22
Laboratory Results
08/01/24 08/02/24
10:03 03:22
PT 14.7 H 14.3
INR 1.12 1.08
APTT 27.8 25.5
[2024-08-02 08:20] LABS: Glycohemoglobin (HgbA1c) 7.5 % (4.0-5.6)
[2024-08-02] MEDS: NOVOLOG FLEXPEN-MODERATE RESISTANCE 1 UNITS SC (08:24)
[2024-08-02 08:34] LABS: Glucose - Point of Care 192 mg/dl (70-99)
[2024-08-02 09:00] VITALS: BP 110/61
--- NOTE | 2024-08-02 09:00 | PTCARENOTE ---
Ambulated with RN around entire 3rd floor. Mildly dyspneic but 'not more than usual'. This time was used for discharge instructions, s/s of stroke and to call 911 to alert the stroke center. 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
understands the warning s/s of stroke and to call 911. Reviewed incisional car and showering instructions. He verbalized it was the same as when he recently had his PPM implanted. It was stressed that he is to do NO OUTDOOR activity due to the
extreme heat and until he has his postop visit. He verbalized his understanding. Safe environment maintained.
--- NOTE | 2024-08-02 10:33 | W.DS.TRANS ---
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
-
Discharge Instructions:
Discharge Diagnosis/Procedures Left carotid endarterectomy
Diet As tolerated
Activity No strenuous activity
Driving Restrictions Not until seen by your Dr
Bathing Restrictions OK to Shower
Instructions:
Stand-Alone Forms: Vascular Surg Discharge Instr
Changes to Home Medications: No
Discharge Medications:
DC Medications w/original date entered in [employer]
aspirin 81 mg tablet,delayed release 81 mg PO DAILY Blood Clot Prevention/Tx 07/05/11
metformin 500 mg tablet 1,000 mg PO BID Diabetes 07/05/11
atorvastatin 80 mg tablet 80 mg PO HS High Cholesterol 07/25/24
docusate sodium 100 mg tablet 100 mg PO DAILY Constipation 07/25/24
ferrous sulfate 325 mg (65 mg iron) tablet (iron) 325 mg PO DAILY Supplement 07/25/24
loratadine 10 mg tablet 10 mg PO DAILY Allergies 07/25/24
metoprolol succinate 25 mg tablet,extended release 24 hr 12.5 mg PO DAILY Heart Disease/Condition 07/25/24
sitagliptin 50 mg tablet 50 mg PO DAILY Diabetes 07/25/24
vitamin N37-antrf acid 1 dose PO DAILY Supplement 07/25/24
Home Medication Changes
Pending Results: No
[2024-08-02 10:42] VITALS: BP 92/58
--- NOTE | 2024-08-02 10:49 | CM ---
Patient has been medically cleared for discharge to home with no additional skilled services. IMM signed. will transport home.
--- NOTE | 2024-08-02 11:54 | PN.CDI ---
CDI
- -
CDI:
Physician Documentation Request
Admit Date: 08/01/24 06:09
Dear Doctor Josue,
Please review the following and provide your response in the progress notes.
Clinical Indicators:
- Patient admit for left carotid stenosis
- 08/01 Post Op Report EBL 40ml
- 08/01 Tar And Ammonia Pump Operator 'Acute on chronic anemia'
Laboratory Tests
07/27/24 08/01/24 08/02/24
09:39 10:03 03:22
Hgb 11.9 L 10.4 L 9.3 L
Please clarify the appropriate diagnosis that supports the above lab abnormalities and additional evaluation, monitoring and/or treatment rendered:
Anemia, due to acute blood loss and hemodilution
Anemia due to hemodilution only
Clinically insignificant abnormal lab values
Other (please specify)
Use of terms such as suspected, likely, concern for, or probable (associated with a specific diagnosis that is being evaluated, monitored, or treated as if it exists) are acceptable and can be coded in the inpatient setting, when documented at the
time of discharge.
Thank you,
Jaimee Arrington RN
CDI Specialist
Please use your independent medical judgment in providing your response.
== END 2024-08-02 11:30 | disposition home or self-care (01) | DRG 38 ==
LOC: ICU 06:09
PROVIDERS: Nurse Practitioner Acute Care; ADMITTING PHYSICIAN Surgery Vascular Surgery; CONSULT PHYSICIAN Internal Medicine Critical Care Medicine; PRIMARYCARE PHYSICIAN Internal Medicine
PROC: 03CL0ZZ Extirpation of Matter from Left Internal Carotid Artery, Open Approach (ICD-10-PCS; 2024-08-01)
PROC: 03UL0KZ Supplement Left Internal Carotid Artery with Nonautologous Tissue Substitute, Open Approach (ICD-10-PCS; 2024-08-01)
DX: I65.22 Occlusion and stenosis of left carotid artery (principal); E87.20 Acidosis, unspecified; D64.9 Anemia, unspecified; E78.00 Pure hypercholesterolemia, unspecified; I35.0 Nonrheumatic aortic (valve) stenosis; M19.90 Unspecified osteoarthritis, unspecified site; E87.5 Hyperkalemia; E11.65 Type 2 diabetes mellitus with hyperglycemia; E66.9 Obesity, unspecified; Z86.73 Personal history of transient ischemic attack (TIA), and cerebral infarction without residual deficits; Z87.891 Personal history of nicotine dependence; Z87.19 Personal history of other diseases of the digestive system; Z79.82 Long term (current) use of aspirin; Z79.84 Long term (current) use of oral hypoglycemic drugs; Z80.0 Family history of malignant neoplasm of digestive organs; Z82.3 Family history of stroke; Z82.49 Family history of ischemic heart disease and other diseases of the circulatory system
CPT/HCPCS: 88304; 88311; 35301; 36415; 71046; 80048; 82962; 83036; 83735; 84100; 85025; 85027; 85610; 85730; 86850; 86900; 86901; 95938; 95941; 95955

== ENCOUNTER → 2024-08-26 14:05 | Outpatient (REF) | payer MEDICARE, SELFPAY | LOC: HWRAD 14:05 | PROVIDERS: ATTENDING PHYSICIAN Registered Nurse; FAMILY PHYSICIAN Internal Medicine | DX: I65.23 Occlusion and stenosis of bilateral carotid arteries (principal) | CPT/HCPCS: 93880 ==